=== PATIENT | female | born 2000 | race Caucasian/White ===

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

== ENCOUNTER 2019-04-24 16:00 | Emergency (ER) | payer OTHER, SELFPAY ==
[2019-04-24 16:06] VITALS: BP 125/72; PULSE 86; RESP 16; TEMP 36.7; O2SAT 100; BMI 32.8
--- NOTE | 2019-04-24 16:10 | DI.RAD.S_ITS ---
PROCEDURE: XR WRIST RT MIN 3V INDICATIONS: rt wrist pain with extension, no known injury TECHNIQUE: 4 views of the wrist were acquired. COMPARISON: None. FINDINGS: Bones: No fractures or dislocations. No suspicious bony lesions. Scaphoid view: Scaphoid is intact. Soft tissues: No suspicious soft tissue calcifications. IMPRESSION: No fracture. No osseous lesion. If symptoms and/or clinical suspicion for pathology persists, further assessment with repeat radiographs (7-10 days) or advanced imaging (e.g. CT, MRI or bone scan) may be helpful. Dictated by: Capri Villafana MD, PhD on 04/24/2019 at 16:22 Approved by: Capri Villafana MD, PhD on 04/24/2019 at 16:23
--- NOTE | 2019-04-24 18:22 | ED.UPPEXIN ---
HPI - Extremity Injury (Upper) General Chief Complaint: Extremity Injury, Upper Stated Complaint: RT WRIST PAIN, NO KNOWN INJURY Time Seen by Provider: 04/24/19 18:10 Source: patient Mode of arrival: ambulatory Limitations: no limitations History of Present Illness HPI narrative: 18-year-old female here for evaluation of right wrist pain. Patient states that over the past several days she has noticed that her wrists hurt especially with in-line compression of the wrist to her arm. No specific trauma. She is a steam plant operator. States the pain is on the inside and outside of her arm. Not worse with movement. Related Data Home Medications Medication Instructions Recorded Confirmed PNV cmb#95-ferrous fumarate-FA 1 tab PO DAILY 04/24/19 04/24/19 [] duloxetine 90 mg PO DAILY 04/24/19 04/24/19 Allergies Allergy/AdvReac Type Severity Reaction Status Date / Time No Known Allergies Allergy Uncoded 01/07/18 17:05 Review of Systems Constitutional Denies fever(s) Musculoskeletal Denies tingling Comments: Right wrist pain Integumentary/Breasts Denies new lesions and Denies rash Neurologic Denies tingling and Denies paresthesias Hematologic/Lymphatic Denies easy bleeding and Denies easy bruising [facility] Medical History Patient denies medical problems (Acute) Surgical History No pertinent past surgical history (Acute) Social History lives independently: Yes Exam Initial Vital Signs Initial Vital Signs: Vital Signs Temperature 98.0 F 04/24/19 16:06 Pulse Rate 86 04/24/19 16:06 Respiratory Rate 16 04/24/19 16:06 Blood Pressure 125/72 04/24/19 16:06 Pulse Oximetry 100 04/24/19 16:06 Const General: cooperative, healthy appearing, comfortable and well developed Resp Effort & Inspection: normal respiratory effort Cardio Rate: regular rate Pulses: radial pulses present on the right Skin Lesions: no lesions Rashes: no rashes Neuro Sensory Exam: no sensory deficits noted Extrem Other: Right elbow unremarkable. Patient does have tenderness to palpation over the distal radius and distal ulna with axial compression of the wrist. No snuffbox tenderness. Has full range of motion of the wrist. Right hand is unremarkable. Course Orders Ordered: ED Orders 04/24/19 16:10 XR wrist RT min 3V Stat Vital Signs - 8 hr 04/24/19 16:06 04/24/19 18:38 Temperature 98.0 F 97.6 F Pulse Rate 86 70 Respiratory Rate 16 15 Blood Pressure 125/72 Blood Pressure [Left Arm] 118/74 Pulse Oximetry 100 98 [facility] - Extremity Injury (Upper) Imaging Data X-ray: Radiologist's impression: Álvaro Hooks N 18 F [address] [address] XRay Report Signed Patient: Álvaro Hooks NMR#: [id number] : 2000Acct:[id number] Age/Sex: 18 FDate of Service: 04/24/19 Loc: ED Accession Number: [id number] Procedure: XR wrist RT min 3V Ordering Provider: Vikki Hurt BACK PANEL PADDER- PROCEDURE: XR WRIST RT MIN 3V INDICATIONS: rt wrist pain with extension, no known injury TECHNIQUE: 4 views of the wrist were acquired. COMPARISON: None. FINDINGS: Bones: No fractures or dislocations. No suspicious bony lesions. Scaphoid view: Scaphoid is intact. Soft tissues: No suspicious soft tissue calcifications. IMPRESSION: No fracture. No osseous lesion. If symptoms and/or clinical suspicion for pathology persists, further assessment with repeat radiographs (7-10 days) or advanced imaging (e.g. CT, MRI or bone scan) may be helpful. Dictated by: Capri Villafana MD, PhD on 04/24/2019 at 16:22 Approved by: Capri Villafana MD, PhD on 04/24/2019 at 16:23 [facility] Narrative Medical decision making narrative: No fractures on the x-ray. Patient is neurovascularly intact. There has been no specific trauma. Low suspicion for fracture or tendon injury. I do suspect overuse injury to the fact she is a steam plant operator. We discussed the use of wrist splint as needed and anti-inflammatories. She expressed understanding and agreement with plan. Discharge Plan Departure Patient Disposition: Home Clinical Impression: Injury of wrist, right Qualifiers: Encounter type: initial encounter Qualified Code(s): S69.91XA - Unspecified injury of right wrist, hand and finger(s), initial encounter Discharge Date/Time: 04/24/19 18:39 Interventions: ED Discharge Assessment Last Done: 04/24/19 18:38 Instructions: DI for Wrist Pain Activity Restrictions/Additional Instructions: Recommend that you rest your wrist as much as possible. You can take NSAID's like motrin as needed. Return to the ER for any new or worsening symptoms. Prescriptions: No Action duloxetine 30 mg capsule,delayed release(DR/EC) 90 mg PO DAILY RF: 0 PNV cmb#95-ferrous fumarate-FA [] 28 mg iron- 800 mcg Tablet 1 tab PO DAILY RF: 0 Referrals: Vinh Ramirez PA-C [Primary Care Provider] -
[2019-04-24 18:38] VITALS: BP 118/74; PULSE 70; RESP 15; TEMP 36.4; O2SAT 98
== END 2019-04-24 18:39 | disposition home or self-care (01) ==
PROVIDERS: Emergency Provider Emergency Medicine; Family Provider Physician Assistant; PCP Physician Assistant
DX: S69.91XA Unspecified injury of right wrist, hand and finger(s), initial encounter (principal)
CPT/HCPCS: 73110; 99282; 99283